=== PATIENT | female | born 1975 | race Caucasian/White ===

== ENCOUNTER → 2017-03-23 | Outpatient (CLI) | payer OTHER | LOC: BMCIMAGING 16:18 | PROVIDERS: ATTEND Podiatrist Foot & Ankle Surgery | DX: M84.375A Stress fracture, left foot, initial encounter for fracture (principal) ==

== ENCOUNTER 2017-07-05 18:39 | Emergency (ER) | payer OTHER ==
--- NOTE | 2017-07-05 18:59 | EDPHY ---
H & P Stated Complaint: LUQ ABD PAIN INTO BACK/HAS HAD COUGH X 2 WEEKS Time Seen by Provider: 07/05/17 18:58 HPI/ROS: HPI: This is a 41-year-old female who presents with Chief Complaint: LUQ ABD PAIN INTO BACK/HAS HAD COUGH X 2 WEEKS Location: Epigastric and left upper quadrant Quality: Pain Duration: Since 4:00 a.m. Signs and Symptoms: No fever, + cough x2 weeks, no chills, no nausea, no vomiting, no diarrhea, no dysuria Timing: Sudden, constant Severity: Moderate Context: Patient has a history of asthma, depression, reflux who woke up at 4: 00 a.m. this morning with left lower rib and left upper quadrant moderate, constant pain that goes into her back. She has had a cold and nonproductive cough for the last 2 weeks along with the rest of her family. She has a history of mid and lower back pain. She has been doing a lot of cleaning this weekend and thought that maybe she had strained her muscles. But despite stretching and massaging the area the pain has not resolved. She has eaten and drink today without difficulty. She has been off control pills for several months, did recently start smoking again due to a family member who recently. Denies any recent long distance trips. Denies chest pain /shortness of breath/nausea/vomiting/fevers. She denies regular alcohol use. Modifying Factors: She went to the urgent care this evening and they sent her to the emergency room for further evaluation Comment: ROS: see HPI Constitutional: No fever, no chills, no weight loss Eyes: No blurred vision Respiratory: No shortness of breath, no cough Cardiovascular: No chest pain Gastrointestinal: No nausea, no vomiting, no diarrhea Genitourinary: No dysuria Extremities: No myalgias Neurologic: No weakness, no numbness Skin: No rashes Hematologic: No bruising, no bleeding MEDICAL/SURGICAL/SOCIAL HISTORY: Medical/SURGICAL history: MEDICAL- ASTHMA, DEPRESSION. SURGICAL- ABD ADHESIONS , C-SECTINO X3, UTERUS RECONSTUCTIN, ORTHO, TONSILECTOMY Social history: , has a son CONSTITUTIONAL: Overweight adult white female awake and alert, no obvious distress HEENT: Atraumatic and normocephalic, PERRL, EOMI. Tympanic membranes clear. Oropharynx clear, no exudate and moist pink mucosa. Airway patent. No lymphadenopathy. No meningismus. Cardiovascular: Normal S1/S2, regular rate, regular rhythm, without murmur rub or gallop. PULMONARY/CHEST: Symmetrical and left lower lateral rib tenderness. Clear to auscultation bilaterally. Good air movement. No accessory muscle usage. ABDOMEN: Soft, nondistended, epigastric and left upper quadrant tenderness, no rebound, + guarding, no peritoneal signs, no masses or organomegaly. No CVAT. EXTREMITIES: 2/2 pulses, strength 5/5, no deformities, no clubbing, no cyanosis or edema. NEUROLOGICAL: no focal neuro deficits. GCS 15. SKIN: Warm and dry, no erythema. no rash. Good capillary refill. Source: Patient Exam Limitations: No limitations - Personal History LMP (Females 10-55): 15-21 Days Ago Current Tetanus/Diphtheria Vaccine: Yes - Medical/Surgical History Hx Asthma: Yes Hx Chronic Respiratory Disease: No Hx Diabetes: No Hx Cardiac Disease: No Hx Renal Disease: No Hx Cirrhosis: No Hx Alcoholism: No Hx HIV/AIDS: No Hx Splenectomy or Spleen Trauma: No Other PMH: MEDICAL- ASTHMA, DEPRESSION. SURGICAL- ABD ADHESIONS, C-SECTINO X3, UTERUS RECONSTUCTIN, ORTHO, TONSILECTOMY - Social History Smoking Status: Current every day smoker Constitutional: Initial Vital Signs Temperature (C) 36.8 C 07/05/17 18:43 Heart Rate 90 07/05/17 18:43 Respiratory Rate 18 07/05/17 18:43 Blood Pressure 147/101 H 07/05/17 18:43 O2 Sat (%) 99 07/05/17 18:43 O2 Delivery Mode Room Air Allergies/Adverse Reactions: cefaclor [From Ceclor] Allergy (Verified 07/05/17 18:42) erythromycin base [Erythromycin Base] Allergy (Verified 07/05/17 18:42) morphine Allergy (Verified 07/05/17 18:42) Penicillins Allergy (Verified 07/05/17 18:42) Tetracyclines Allergy (Verified 07/05/17 18:42) Home Medications: Medication Instructions Recorded Diazepam [Valium 5 MG (*)] 5 mg PO TID PRN #15 tab 07/05/17 Medical Decision Making - Diagnostics Imaging Results: Imaging Impressions Chest X-Ray 07/05/17 18:49 Impression: No acute thoracic abnormality. Abdomen CT 07/05/17 19:05 Impression: 1. No acute abnormalities in the abdomen or pelvis. 2. Diverticulosis. Dr. Carpio discussed these findings by telephone with Janette Go on 2016 at 20:57. ED Course/Re-evaluation: Labs, chest x-ray, IV medications, CT abdomen and pelvis scan ordered Vital signs reviewed and afebrile without systemic signs. No hypoxia and lung exam benign 1915: Given IV Toradol 30 mg x1 2019: Labs reviewed; no signs of anemia, pancreatitis, elevated LFTs, acute kidney injury, electrolyte imbalance, pulmonary embolism. Chest x-ray shows no acute pulmonary abnormality Called by radiologist for CT abdomen and pelvis scan only shows diverticulosis but no diverticulitis Appears to be musculoskeletal in nature and related to her back Differential Diagnosis: Abdominal pain including but not limited to pancreatitis, peptic ulcer disease, cholecystitis, gastritis pulmonary embolism, pneumonia, and urinary tract infection. - Data Points Laboratory Results: Laboratory Results 07/05/17 19:45 07/05/17 19:45 07/05/17 07/05/17 07/05/17 19:45 19:45 19:45 WBC 9.28 10^3/uL 10^3/uL (3.80-9.50) RBC 4.52 10^6/uL 10^6/uL (4.18-5.33) Hgb 14.8 g/dL g/dL (12.6-16.3) Hct 42.0 % % (38.0-47.0) MCV 92.9 fL fL (81.5-99.8) MCH 32.7 pg pg (27.9-34.1) MCHC 35.2 g/dL g/dL (32.4-36.7) RDW 13.6 % % (11.5-15.2) Plt Count 302 10^3/uL 10^3/uL (150-400) MPV 9.2 fL fL (8.7-11.7) Neut % (Auto) 52.9 % % (39.3-74.2) Lymph % (Auto) 36.0 % % (15.0-45.0) Andrew % (Auto) 8.8 % % (4.5-13.0) Eos % (Auto) 1.2 % % (0.6-7.6) Baso % (Auto) 0.8 % % (0.3-1.7) Nucleat RBC Rel Count 0.0 % % (0.0-0.2) Absolute Neuts (auto) 4.91 10^3/uL 10^3/uL (1.70-6.50) Absolute Lymphs (auto) 3.34 10^3/uL H 10^3/uL (1.00-3.00) Absolute Monos (auto) 0.82 10^3/uL H 10^3/uL (0.30-0.80) Absolute Eos (auto) 0.11 10^3/uL 10^3/uL (0.03-0.40) Absolute Basos (auto) 0.07 10^3/uL 10^3/uL (0.02-0.10) Absolute Nucleated RBC 0.00 10^3/uL 10^3/uL (0-0.01) Immature Gran % 0.3 % % (0.0-1.1) Immature Gran # 0.03 10^3/uL 10^3/uL (0.00-0.10) D-Dimer < 0.27 ug/mLFEU ug/mLFEU (0.00-0.50) Sodium 138 mEq/L mEq/L (134-144) Potassium 4.2 mEq/L mEq/L (3.5-5.2) Chloride 102 mEq/L mEq/L (97-110) Carbon Dioxide 24 mEq/l mEq/l (22-31) Anion Gap 12 mEq/L mEq/L (8-16) BUN 11 mg/dL mg/dL (7-23) Creatinine 0.7 mg/dL mg/dL (0.6-1.0) Estimated GFR > 60 Glucose 93 mg/dL mg/dL (70-100) Calcium 9.4 mg/dL mg/dL (8.5-10.4) Total Bilirubin 0.4 mg/dL mg/dL (0.1-1.4) Conjugated Bilirubin 0.1 mg/dL mg/dL (0.0-0.5) Unconjugated Bilirubin 0.3 mg/dL mg/dL (0.0-1.1) AST 26 IU/L IU/L (14-46) ALT 31 IU/L IU/L (9-52) Alkaline Phosphatase 99 IU/L IU/L (38-126) Total Protein 6.8 g/dL g/dL (6.3-8.2) Albumin 4.2 g/dL g/dL (3.5-5.0) Lipase 263 IU/L IU/L (23-300) Medications Given: Discontinued Medications Ketorolac Tromethamine (Toradol) 30 mg IVP EDNOW ONE Stop: 07/05/17 19:05 Last Admin: 07/05/17 19:52 Dose: 30 mg Departure - Departure Disposition: Home, Routine, Self-Care Clinical Impression: Radiculopathy, thoracic region Muscle strain of chest wall Qualifiers: Encounter type: initial encounter Qualified Code(s): S29.011A - Strain of muscle and tendon of front wall of thorax, initial encounter Condition: Good Instructions: Thoracic Back Strain (ED) Additional Instructions: Please follow-up with your primary care provider at which time you may need repeat thoracic x-rays or MRI of the thoracic region. You may take ibuprofen 600-800 mg every 6-8 hours with food for pain. You may use Valium 5 mg every 8 hours as needed for muscle spasm. Referrals: Ginger Jaffe MD [Primary Care Provider] - As per Instructions Prescriptions: Diazepam [Valium 5 MG (*)] 5 mg PO TID PRN #15 tab PRN Reason: Spasms
[2017-07-05] MEDS ORDERED: KETOROLAC 30 MG/1 ML SDV IVP ONE (19:04)
[2017-07-05] MEDS ORDERED: IOPAMIDOL (ISOVUE-300) 100 ML BTL ONE (19:09)
[2017-07-05 19:58] LABS: PLATELET COUNT 302 10^3/uL (150-400)
[2017-07-05 21:26] VITALS: BP 163/100; PULSE 87; RESP 18; TEMP 98.4; O2SAT 97
[2017-07-05] MEDS ORDERED: DIAZEPAM 5 MG PREPACK#4 BTL TAKEHOME ONE ×2 (21:28→21:33)
== END 2017-07-05 21:37 | disposition home or self-care (01) ==
DX: S29.011A Strain of muscle and tendon of front wall of thorax, initial encounter (principal); M54.14 Radiculopathy, thoracic region; J45.909 Unspecified asthma, uncomplicated; F17.200 Nicotine dependence, unspecified, uncomplicated; X58.XXXA Exposure to other specified factors, initial encounter; Y99.8 Other external cause status
CPT/HCPCS: 96374; J1885; Q9967

== ENCOUNTER → 2017-08-16 | Outpatient (CLI) | payer OTHER | LOC: BMCIMAGING 10:50 | PROVIDERS: ATTEND Podiatrist Foot & Ankle Surgery | DX: Z13.820 Encounter for screening for osteoporosis (principal); Z87.81 Personal history of (healed) traumatic fracture ==

== ENCOUNTER → 2017-08-29 | Outpatient (CLI) | payer OTHER | LOC: FIMAGING 11:34 | PROVIDERS: ATTEND Podiatrist Foot & Ankle Surgery | DX: S96.212A Strain of intrinsic muscle and tendon at ankle and foot level, left foot, initial encounter (principal) ==

== ENCOUNTER → 2018-01-18 | Outpatient (CLI) | payer OTHER | LOC: BMCIMAGING 08:46 | PROVIDERS: ATTEND Emergency Medicine | DX: M12.812 Other specific arthropathies, not elsewhere classified, left shoulder (principal) ==

== ENCOUNTER → 2018-06-30 | Outpatient (CLI) | payer OTHER | LOC: BMCIMAGING 10:49 | PROVIDERS: ATTEND Emergency Medicine | DX: R10.13 Epigastric pain (principal); K76.0 Fatty (change of) liver, not elsewhere classified ==

== ENCOUNTER → 2019-02-10 | Outpatient (CLI) | payer OTHER | LOC: BMCIMAGING 13:50 ==